=== PATIENT | male | born 1965 | race Caucasian/White ===

== ENCOUNTER 2020-01-24 02:02 | Outpatient (CLI) | payer BC, SELFPAY ==
[2020-01-24 17:59] LABS: SARS-CoV-2 RNA PCR Negative
== END 2020-01-24 02:03 | disposition home or self-care (01) ==
LOC: ANHCOVIDDT 02:02
PROVIDERS: PCP Family Medicine; Visit Provider Urology
DX: Z20.828 Contact with and (suspected) exposure to other viral communicable diseases (principal); Z01.812 Encounter for preprocedural laboratory examination
CPT/HCPCS: 87635; C9803; U0003

== ENCOUNTER 2020-01-27 01:59 | Day surgery (SDC) | payer BC, SELFPAY ==
[2020-01-26 12:15] VITALS: BMI 32.9
[2020-01-27] VITALS (8 sets, daily range): BP systolic 100–137; BP diastolic 65–93; PULSE 84–92; RESP 14–18; TEMP 36.3–37.3; O2SAT 93–100
--- NOTE | ~2020-01-27 | XR_ITS ---
EXAMINATION: XR retrograde pyelo w/stent LT INDICATION: Left ureteral stone TECHNIQUE: Eight intraoperative fluoroscopic images are submitted for review. Total fluoroscopic time is 18.3 seconds. The DAP is 0.03335 mGym2. COMPARISON: Radiograph from today FINDINGS: Fluoroscopic images demonstrate moderate left hydronephrosis. Final images demonstrate a le ft internal ureteral stent in expected position. Please refer to surgical note for full details. IMPRESSION: 1. Moderate left hydronephrosis with left internal ureteral stent in expected position. Please refer to surgical note for full details. Reviewed, dictated and finalized at location A. IMPRESSION: 1. Moderate left hydronephrosis with left internal ureteral stent in expected p osition. Please refer to surgical note for full details.
--- NOTE | ~2020-01-27 | XR_ITS ---
EXAMINATION: XR abdomen/kub 1V INDICATION: Left-sided abdominal pain TECHNIQUE: Supine views of the abdomen were obtained on 2 radiographs. COMPARISON: None FINDINGS: A 5 mm calcification projects in the left pelvis at the expected location of the left urete rovesicular junction. There is a 5 mm stone of the left kidney lower pole. No additional urinary trac t calculi are identified. The bowel gas pattern is normal. There is mild osteoarthritis of the hips. The visualized lung bases are clear. IMPRESSION: 1. Likely 5 mm stone at the left ureterovesicular junction. 2. Left nephrolithiasis. Reviewed, dictated and finalized at location A.
--- NOTE | 2020-01-27 08:22 | WPDANESEPPF ---
Anes - Initial Pre Proc Eval Procedure: Operation Date: 01/27/20 15:00 Proposed Procedures p Cystoscopy, Left Ureteroscopy, Left Retrograde Pyelogram, Left Stone Extraction, Possible Left Stent Placement - Arjun Robledo MD s Possible Holmium Laser Procedure - Arjun Robledo MD Date/Time: 01/27/20 08:22 Surgeon: Arjun Robledo MD Pre Op Diagnosis: Left Ureteral Stone Patient Data Age: 54 Gender: M Height: 1.8 m Weight: 107.05 kg Allergies Allergy/AdvReac Type Severity Reaction Status Date / Time niacin AdvReac Intermediate HEADACHES Verified 01/27/20 12:58 Home Medications Medication Instructions Recorded Confirmed Type albuterol sulfate 1 - 2 puff INHALATION DIRECTED 01/26/20 01/27/20 History PRN aspirin 81 mg PO DAILY 01/26/20 01/26/20 History atorvastatin 10 mg PO DAILY 01/26/20 01/27/20 History fluticasone propion-salmeterol 1 inh INHALATION DAILY 01/26/20 01/27/20 History [Advair Diskus] gabapentin 100 mg PO TID PRN 01/26/20 01/27/20 History lamotrigine 25 mg PO DAILY 01/26/20 01/27/20 History lamotrigine 150 mg PO DAILY 01/26/20 01/27/20 History lisinopril 10 mg PO DAILY 01/26/20 01/27/20 History tamsulosin [Flomax] 0.4 mg PO DAILY 01/26/20 01/27/20 History venlafaxine 150 mg PO DAILY 01/26/20 01/27/20 History Patient hx anesthesia problems: none Family hx anesthesia problems: none PMFSH Past Medical History Medical History (Updated 01/27/20 @ 08:22 by Woo Richards DO) Anxiety Asthma Depression Hyperlipidemia Hypertension SCHUYLER (obstructive sleep apnea) CPAP Pre-diabetes Surgical History Surgical History (Updated 01/27/20 @ 08:22 by Woo Richards DO) History of hernia repair History of tonsillectomy Social History Social History Smoking status: Never smoker Spiritual care concerns: No Anes - Eval Final PreProcedure Day of Procedure 01/27/20 08:22 Patient weight: obese Heart: regular rate and rhythm Lungs: clear to auscultation and normal air movement Airway: Mallampati scale class II Neurological: alert and oriented Last oral intake: >/= 8 hours ASA classification: III Emergent: no Anesthetic plan: proceed Anesthesia type and monitoring: general LMA and standard monitoring Informed Consent: The patient's anesthetic plan and its attendant risks and benefits were discussed with the patient/family/POA. Questions were solicited and answers provided to the satisfaction of the patient/family/POA.
--- NOTE | 2020-01-27 13:10 | ECG_ITS ---
Measurements Intervals [place] Rate: 82 P: 48 VT: 183 QRS: -5 QRSD: 79 T: 57 QT: 323 QTc: 379 Interpretive Statements SINUS RHYTHM EARLY PRECORDIAL R/S TRANSITION BORDERLINE ECG Electronically Signed On 01-27-2020 13:44:27 CDT by Romeo Cline D.O.
[2020-01-27] MEDS: LACTATED RINGERS 1,000 ML 30 ML IV CONT ×2 (14:00→16:29)
--- NOTE | 2020-01-27 14:02 | WPDHPUPDATE1 ---
History and Physical Update Update Date/Time: 01/27/20 14:02 History and Physical has been reviewed, including an updated exam of the patient. There are NO changes in the patient's condition. Risks, benefits, and alternatives have been discussed and questions answered. Patient agrees to proceed with procedure.
--- NOTE | 2020-01-27 14:05 | SUR.PREOP ---
To XY per w/c for KUB.
--- NOTE | 2020-01-27 15:09 | SUR.PREOP ---
Up to bathroom.
[2020-01-27] MEDS: ceFAZolin 2 GM/D5W 50 ML 2 GM/50 ML BAG IVPB (16:04)
[2020-01-27] MEDS: LIDOCAINE HCL 2% GEL UROJET 10 ML PKG MUCOUS MEM (16:22)
--- NOTE | 2020-01-27 16:22 | PM.PROC ---
Procedure Note - Detailed Date of procedure: 01/27/20 Pre-op diagnosis: Left Ureteral Stone Post-op diagnosis: same Procedure performed: Cystoscopy, left retrograde pyelogram, left ureteroscopy with stone extraction, left ureteral stent placement 4.8 Bulgarian contour Description of procedure: patient is taken to the operative suite and correctly identified. Once anesthesia was obtained was placed in dorsal lithotomy position prepped and draped usual sterile fashion. Twenty-two Bulgarian scope inserted into the bladder there are no tumors noted left ureteral orifice was cannulated with a guidewire. 8/10 dilator was used to dilate the ureter. A rigid ureteral scope was then inserted. The stone was visualized and grasped its entirety and sent for analysis. Pyelogram was then performed to confirm placement of the stent. 4.8 Bulgarian contour stent was then placed with the proximal end coiled in the renal pelvis distal in the bladder. Patient is taken recovery room after 2% viscous lidocaine inserted into urethra. He will follow up in a week's time for stent removal. Anesthesia: GLMA Surgeon: Arjun Robledo MD Drains: Yes Packing: No Pathology: yes Complications: No immediate complications Condition: stable Disposition: PACU
== END 2020-01-27 18:10 | disposition home or self-care (01) ==
PROVIDERS: PCP Family Medicine; Visit Provider Urology
PROC: (CPT 52352; principal; 2020-01-27 15:00)
PROC: (CPT 52332; 2020-01-27 15:00)
DX: N13.2 Hydronephrosis with renal and ureteral calculous obstruction (principal); I10 Essential (primary) hypertension; E78.5 Hyperlipidemia, unspecified; G47.33 Obstructive sleep apnea (adult) (pediatric); J45.909 Unspecified asthma, uncomplicated; F41.8 Other specified anxiety disorders; R73.03 Prediabetes; Z79.82 Long term (current) use of aspirin; E66.9 Obesity, unspecified; Z68.32 Body mass index [BMI] 32.0-32.9, adult
CPT/HCPCS: 52332; 52352; 74018; 74420; 82365; 88300; 93005; A9270; C1769; C2617; J0690; J1100; J2250; J2405; J2704; J3010; J7120; Q9966

== ENCOUNTER 2020-12-29 00:55 | Observation (INO) | payer BC, SELFPAY ==
[2020-12-29] VITALS (8 sets, daily range): BP systolic 107–147; BP diastolic 70–94; PULSE 77–86; RESP 12–20; TEMP 36.8–37.5; O2SAT 97–100; BMI 32.6
--- NOTE | ~2020-12-29 | XR_ITS ---
EXAMINATION: XR retrograde pyelo w/stent LT EXAM DATE: 12/29/2020 10:20 INDICATION: Left ureteral stent. TECHNIQUE: Fluoroscopy used during XR retrograde pyelo w/stent LT performed by Dr. Adam Forrester MD, urologist. The radiologist Bronson Roman M.D. dictating this report of the image(s) available wa s not present for the procedure. Total fluoroscopic time of 20 seconds. The DAP for this procedure was 483 radcm2. A total of 39 images sent to PACS from the exam. Cine run(s) available for review. FINDINGS: Prior to contrast administration, possible identification of 1.5 cm left ureteropelvic junc tion stone. Left ureter was cannulated and injected. There is mild to moderate left-sided hydroureter onephrosis. Final images demonstrate ureteral stent in position. Correlate with procedure note. IMPRESSION: Mild to moderate left hydroureteronephrosis. Stent in position. Reviewed, dictated and finalized at location A.
[2020-12-29] MEDS: SODIUM CHLORIDE 0.9% IV 1,000 ML 100 ML IV CONT (01:30)
--- NOTE | 2020-12-29 01:50 | ADMGEN ---
This patient, Jonnathan Hobson, was admitted to [facility]. Patient/family oriented to hospital policies and general routines including ID bracelet, bed and alarms, visiting hours, pain management, procedures, bathroom and other care routines, personal items, smoking policy, room service/diet, and visiting hours. Information on how to activate the Rapid Response Team has been discussed. Patient/Family are encouraged to report perceived risks to care and to ask questions if they do not understand what they are told or what they should do.
[2020-12-29] MEDS: MORPHINE SULFATE (*CRX) 4 MG/ML INJ IV PUSH ×2 (04:21→08:25)
--- NOTE | 2020-12-29 05:41 | PM.IMHP ---
H&P: HPI History of Present Illness Date/Time: 12/29/20 05:41 Chief Complaint: Flank pain Narrative: 55-year-old male with past medical history ADHD, hyperlipidemia, obstructive sleep apnea, asthma and kidney stones who presented to [facility] ER in [place] with flank pain. At the outside hospital CT demonstrated a 15 mm left kidney stone with ureteral obstruction and labs demonstrated acute kidney injury with creatinine of 1.8 up from prior value of 1.1. The patient is managed by Dr. Robledo from Urology and he was transferred here for further care. The patient reports that he he was feeling ill about a week week ago and was diagnosed with bronchitis and placed on albuterol inhaler and Augmentin. He initially thought that his left flank pain was due to his bronchitis. However over the last 3 or 4 days his flank pain has worsened and has been more in the lower left flank region. He had noticed his urine being darker over the last few days but denies any hematuria. He thought that his urine smells strong. He denies any dysuria or changes in urinary frequency. He reports the pain is achy with periods of stabbing. It occasionally will radiate around to his left anterior abdomen. He reports that at its worst the pain was the 12/10 in intensity in is currently down to a 5/10 intensity after IV morphine. He had his 1st kidney stone in January 2020 at which time he had a 5 mm stone with stent placement. He does drink a large amount of coffee and tea and occasionally has dark soda. Sounds as if he does not drink all that much of clear liquids. He denies any fevers or chills. He has continued to take his home Flomax which he is on due to history of BPH and urinary retention after catheter placement several times in the past. CT of the abdomen pelvis without contrast were performed at the outside facility and demonstrated 15 mm UVJ stone with moderate hydroureter and extensive perinephric stranding as well as hepatic steatosis. His white count was [address]. His UA was unremarkable except for 0-5 wbc's and 0-5 rbc's. Review of Systems Review of Systems: 12 systems were reviewed with pertinent positives and negatives per HPI. Except as documented in the HPI, all other systems were reviewed and are negative. [facility] Past Medical History Medical History (Updated 12/29/20 @ 07:19 by Lucía Givens DO) ADHD Anxiety Asthma BPH (benign prostatic hyperplasia) Depression Hyperlipidemia Hypertension Kidney stones SCHUYLER (obstructive sleep apnea) CPAP Pre-diabetes Psoriasis Surgical History Surgical History (Updated 12/29/20 @ 05:49 by Lucía Givens DO) History of hernia repair (~2017) History of tonsillectomy S/P cystoscopy with ureteral stent placement (01/2020) Family History Family History Mother Acute myocardial infarction Father Acute myocardial infarction Grandparent Alzheimer's dementia Social History Social History (Updated 12/29/20 @ 07:18 by Lucía Givens DO) Social History: He has been since 2007. 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 He is a lifelong nonsmoker. He drinks 2-3 alcoholic beverages a week. He denies illicit substance use. He does not have any children but has 2 small dogs at home. Smoking status: Never smoker Second hand tobacco smoke exposure: No Alcohol intake: current Drinks per week: 2 Substance use: never Substance use type: does not use Spiritual care concerns: No Meds Home Medications and Allergies Home Medications Medication Instructions Recorded Confirmed Type albuterol sulfate 1 - 2 puff INHALATION DIRECTED 01/26/20 12/29/20 History PRN aspirin 81 mg PO HS 01/26/20 12/29/20 History atorvastatin 10 mg PO HS 01/26/20 12/29/20 History fluticasone propion-salmeterol 1 inh INHALATION DAILY 01/26/20 12/29/20 History [Advair Disk] lamotrigine 150
[2020-12-29 06:46] LABS: Hematocrit 40.2 % (42.0-52.0); Hemoglobin 13.3 g/dL (14.0-18.0); Mean Corpuscular HGB Conc 33.1 g/dl (32-36); Mean Corpuscular Volume 99.8 fl (80-100); Platelet Count Result 197 k/mm3 (150-375); Red Blood Count 4.03 M/mm3 (4.6-6.20); Red Cell Distribution Width 13.1 % (11.5-14.5); White Blood Count 11.6 K/mm3 (4.5-10.0)
[2020-12-29 07:12] LABS: Anion Gap 7 mmol/L (8-16); Blood Urea Nitrogen 25 mg/dL (9-20); Calcium 8.9 mg/dL (8.4-10.2); Carbon Dioxide 28 mmol/L (22-30); Chloride 102 mmol/L (98-107); Estimated CRCL calculation 73 ml/min; Estimated Glomerular Filt Rate 58; Glucose 123 mg/dL (65-110); Potassium 4.3 mmol/L (3.4-5.0); Sodium 137 mmol/L (137-145)
--- NOTE | 2020-12-29 09:00 | WPDANESEPPF ---
Anes - Initial Pre Proc Eval Procedure: Operation Date: 12/29/20 10:00 Proposed Procedures p Cystoscopy,Left Stent Placement - Adam Forrester MD Date/Time: 12/29/20 09:00 Surgeon: Lucía Givens DO Pre Op Diagnosis: Kidney stones Patient Data Age: 55 Gender: M Height: 1.8 m Weight: 106.2 kg Last Vital Signs Temp 36.9 C 12/29/20 00:45 Pulse 84 12/29/20 00:45 Resp 16 12/29/20 00:45 BP 147/93 H 12/29/20 00:45 Pulse Ox 99 12/29/20 00:45 Allergies Allergy/AdvReac Type Severity Reaction Status Date / Time niacin AdvReac Intermediate HEADACHES Verified 12/29/20 02:00 Home Medications Medication Instructions Recorded Confirmed Type albuterol sulfate 1 - 2 puff INHALATION DIRECTED 01/26/20 12/29/20 History PRN aspirin 81 mg PO HS 01/26/20 12/29/20 History atorvastatin 10 mg PO HS 01/26/20 12/29/20 History fluticasone propion-salmeterol 1 inh INHALATION DAILY 01/26/20 12/29/20 History [Advair Diskus] lamotrigine 150 mg PO DAILY 01/26/20 12/29/20 History lisinopril 10 mg PO HS 01/26/20 12/29/20 History tamsulosin [Flomax] 0.4 mg PO HS 01/26/20 12/29/20 History venlafaxine 150 mg PO HS 01/26/20 12/29/20 History amoxicillin-pot clavulanate 1 tablet PO BID 12/29/20 12/29/20 History atomoxetine [Strattera] 60 mg PO DAILY 12/29/20 12/29/20 History montelukast [Singulair] 10 mg PO HS 12/29/20 12/29/20 History prednisone 10 mg PO DAILY 12/29/20 12/29/20 History Laboratory Tests 12/29/20 12/29/20 06:31 06:31 WBC 11.6 K/mm3 H K/mm3 (4.5-10.0) RBC 4.03 M/mm3 L M/mm3 (4.6-6.20) Hgb 13.3 g/dL L g/dL (14.0-18.0) Hct 40.2 % L % (42.0-52.0) MCV 99.8 fl fl (80-100) MCH 33.0 pg pg (26-34) MCHC 33.1 g/dl g/dl (32-36) RDW 13.1 % % (11.5-14.5) Plt Count 197 k/mm3 k/mm3 (150-375) MPV 10.0 fl fl (7.4-10.4) Sodium 137 mmol/L mmol/L (137-145) Potassium 4.3 mmol/L mmol/L (3.4-5.0) Chloride 102 mmol/L mmol/L (98-107) Carbon Dioxide 28 mmol/L mmol/L (22-30) Anion Gap 7 mmol/L L mmol/L (8-16) BUN 25 mg/dL H mg/dL (9-20) Creatinine 1.30 mg/dL mg/dL (0.7-1.3) Estim Creat Clear Calc 73 ml/min ml/min Estimated GFR 58 L (59 - ) Glucose 123 mg/dL H mg/dL (65-110) Calcium 8.9 mg/dL mg/dL (8.4-10.2) Patient hx anesthesia problems: none Family hx anesthesia problems: none [facility] Past Medical History Medical History (Updated 12/29/20 @ 07:19 by Lucía Givens DO) ADHD Anxiety Asthma BPH (benign prostatic hyperplasia) Depression Hyperlipidemia Hypertension Kidney stones SCHUYLER (obstructive sleep apnea) CPAP Pre-diabetes Psoriasis Surgical History Surgical History (Updated 12/29/20 @ 05:49 by Lucía Givens DO) History of hernia repair (~2017) History of tonsillectomy S/P cystoscopy with ureteral stent placement (01/2020) Family History Family History Mother Acute myocardial infarction Father Acute myocardial infarction Grandparent Alzheimer's dementia Social History Social History (Updated 12/29/20 @ 07:18 by Lucía Givens DO) Social History: He has been since 2007. 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 He is a lifelong nonsmoker. He drinks 2-3 alcoholic beverages a week. He denies illicit substance use. He does not have any children but has 2 small dogs at home. Smoking status: Never smoker Second hand tobacco smoke exposure: No Alcohol intake: current Drinks per week: 2 Substance use: never Substance use type: does not use Spiritual care concerns: No Anes - Eval Final PreProcedure Day of Procedure 12/29/20 09:00 Patient weight: obese Heart: regular rate and rhythm Lungs: clear to auscultation and normal air movement Airway: Mallampati scale class II Neurolo
--- NOTE | 2020-12-29 09:03 | WPDURCON ---
Assessment and Plan Assessment and plan (1) Obstruction of left ureteropelvic junction due to stone: Code(s): N20.1 - Calculus of ureter Status: Acute Assessment and Plan: Keep NPO Obtain Consent: Cystoscopy, left ureteroscopy with possible stone extraction, left stent placement, holmium laser, left retrograde pyelogram. Plan to go to the OR today with Dr. Forrester. The patient will likely only have a stent today and then f/u in a week or two for a left ESWL. (2) Acute kidney injury: Code(s): N17.9 - Acute kidney failure, unspecified Status: Acute Assessment and Plan: Improved from 1.8 initially at [place]. Will watch creatinine, I suspect it will continue to decline to baseline once stent is placed. Urology Consult Note HPI Date Seen: 12/29/20 Requesting Physician: Lucía Givens DO Primary Care Provider: Cornelius Driver MD Consult Narrative Narrative: Jonnathan Hobson is a 55 year old male who presented to the ER in [place] last night at [facility] for acute onset of left sided pain around 1900. He denies nausea or vomiting, dysuria or hematuria. His UA wasn't suspicious of a UTI, urine culture is pending at this time. WBC is 11.6 and creatinine is 1.30. CT scan done in [place], shows a 15mm UPJ stone in the left ureter. He was transferred here for definitive stone care. He is a patient if Dr. Robledo' who has had previous stones and procedures for his stones. Review of Systems Cardiovascular: Cardiovascular: Denies chest pain Respiratory: Respiratory: Reports no additional respiratory complaints Gastrointestinal: Gastrointestinal: Reports abdominal pain, Denies nausea and Denies vomiting Genitourinary: Genitourinary: Denies hematuria, Denies dysuria, Reports flank pain, Denies urinary frequency, Denies urinary hesitancy, Denies urinary incontinence and Denies urinary urgency [facility] Past Medical History Medical History ADHD Anxiety Asthma BPH (benign prostatic hyperplasia) Depression Hyperlipidemia Hypertension Kidney stones SCHUYLER (obstructive sleep apnea) CPAP Pre-diabetes Psoriasis Surgical History Surgical History History of hernia repair (~2017) History of tonsillectomy S/P cystoscopy with ureteral stent placement (01/2020) Family History Family History Mother Acute myocardial infarction Father Acute myocardial infarction Grandparent Alzheimer's dementia Social History Social History Social History: He has been since 2007. 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 He is a lifelong nonsmoker. He drinks 2-3 alcoholic beverages a week. He denies illicit substance use. He does not have any children but has 2 small dogs at home. Smoking status: Never smoker Second hand tobacco smoke exposure: No Alcohol intake: current Drinks per week: 2 Substance use: never Substance use type: does not use Spiritual care concerns: No Meds Home Medications and Allergies Home Medications Medication Instructions Recorded Confirmed Type albuterol sulfate 1 - 2 puff INHALATION DIRECTED 01/26/20 12/29/20 History PRN aspirin 81 mg PO HS 01/26/20 12/29/20 History atorvastatin 10 mg PO HS 01/26/20 12/29/20 History fluticasone propion-salmeterol 1 inh INHALATION DAILY 01/26/20 12/29/20 History [Advair Diskus] lamotrigine 150 mg PO DAILY 01/26/20 12/29/20 History lisinopril 10 mg PO HS 01/26/20 12/29/20 History tamsulosin [Flomax] 0.4 mg PO HS 01/26/20 12/29/20 History venlafaxine 150 mg PO HS 01/26/20 12/29/20 History amoxicillin-pot clavulanate 1 tablet PO BID 12/29/20 12/29/20 History atomoxetine [Strattera] 60 mg PO DAILY 12/29/20 12/29/20 History montelukast [Si
[2020-12-29] MEDS: LACTATED RINGERS 1,000 ML 30 ML IV CONT (09:08)
[2020-12-29] MEDS: ceFAZolin 2 GM/D5W 50 ML 2 GM/50 ML BAG IVPB (09:53)
--- NOTE | 2020-12-29 09:55 | WPDHPUPDATE1 ---
History and Physical Update Update Date/Time: 12/29/20 09:55 Agree with Selwyn Mijares NP assessment. Will plan cystoscopy, left ureteral stent placement today and ESWL in the future. History and Physical has been reviewed, including an updated exam of the patient. There are NO changes in the patient's condition. Risks, benefits, and alternatives have been discussed and questions answered. Patient agrees to proceed with procedure.
[2020-12-29] MEDS: LIDOCAINE HCL 2% GEL UROJET 10 ML PKG MUCOUS MEM (10:06)
--- NOTE | 2020-12-29 10:17 | P.OP_ITS ---
Procedure Note - Detailed Date of Procedure 12/29/20 Pre-op Diagnosis Left ureteral stone Post-op Diagnosis same Procedure Performed Cystoscopy, left ureteral retrograde pyelogram, left stent placement Surgeon Adam Forrester MD Anesthesia MAC Description of Procedure The patient was brought to the operative suite where he was prepped and draped in a routine sterile fashion while in the dorsal lithotomy position. A 19 F rigid cystoscope was placed in her bladder and the bladder was circumferentially inspected. There were no urethral strictures. The prostatic urethral estimated length was 1.5cm. There was mild obstruction of the prostatic urethra with no median lobe. The bladder mucosa was without hyperemia. There was no intravesical foreign body or neoplasm. There was a single orthotopic ureteral orifice bilaterally. I did a quick left retrograde pyelogram with an 8F bulb- tip catheter to outline the left collecting system. I advanced .035 glidewire into the left renal pelvis under fluoroscopy. A 4.8F variable length ureteral stent was positioned with the proximal coil in the renal pelvis and the distal coil in the bladder. Scopes and wires were removed after emptying the patient's bladder. Urine Output 175 Drains Yes Packing No Pathology none sent Complications No immediate complications Condition stable Disposition PACU
--- NOTE | 2020-12-29 13:45 | PM.IMPN ---
Progress Note: A&P Assessment and Plan (1) Obstruction of left ureteropelvic junction due to stone: Code(s): N20.1 - Calculus of ureter Status: Acute Assessment and Plan: status post stent placement on the left with Urology earlier today benign physical exam, including no CVA tenderness; symptoms of flank pain and hematuria, dysuria subsided, per patient Based on notes and discussion with patient, appears to have plan for shockwave lithotripsy on Sunday In the meantime will continue IV fluids, pain control with morphine, Flomax, Augmentin. Resume anticoagulation this evening defer to urology, regarding timeline of discharge (2) Bronchitis: Code(s): J40 - Bronchitis, not specified as acute or chronic Status: Acute Assessment and Plan: Will continue the patient's home albuterol inhaler, Augmentin, Advair, p.o. prednisone and singular Time Spent With Patient Time with patient: less than 15 minutes Subjective Date/time seen: 12/29/20 13:45 no acute medical complaints, patient feeling good, no lower abdominal pain or dysuria at this point Review of Systems Review of Systems: All systems reviewed & are unremarkable except as noted in HPI and below Exam Const: General: no acute distress Neck: Neck: no JVD Resp: Effort & Inspection: normal respiratory effort Auscultation: clear to auscultation bilaterally Cardio: Rate: regular rate Rhythm: regular rhythm GI: GI Palp: Yes Soft to palpation and No Tenderness to palpation present (GI) Other: no flank tenderness Objective Data Vital Signs Vital Signs: Vital Signs - 24 hr 12/29/20 00:45 12/29/20 08:00 12/29/20 08:30 Temperature 98.4 F 98.2 F 99.5 F Pulse Rate 84 86 84 Respiratory Rate 16 18 16 Blood Pressure 147/93 H 129/80 137/80 Pulse Oximetry 99 98 100 12/29/20 10:22 12/29/20 10:35 12/29/20 10:50 Temperature 99.4 F Pulse Rate 81 77 81 Respiratory Rate 12 20 18 Blood Pressure 107/70 114/80 132/88 Pulse Oximetry 97 97 98 12/29/20 11:05 12/29/20 11:25 Temperature Pulse Rate 83 86 Respiratory Rate 18 16 Blood Pressure 136/89 147/94 H Pulse Oximetry 97 97 Intake/Output Intake/Output: Intake & Output 12/26/20 12/27/20 12/28/20 12/29/20 23:59 23:59 23:59 23:59 Intake Total 100 Output Total 600 Balance -500 Meds/Results Medications: Active Medications Generic Name Dose Route Start Last Admin Trade Name Freq PRN Reason Stop Dose Admin Amoxicillin/Clavulanate Potassium 1 tablet 12/29/20 09:00 Amoxicillin/Clavulanate K 875-125 Mg Tab PO Q12HR ANGELITA Fentanyl Citrate 25 mcg 12/29/20 09:00 Fentanyl Citrate Inj (*Crx) 100 Mcg/2 Ml Vial IV PUSH Q2M PRN Pain Sodium Chloride 1,000 mls @ 100 mls/hr 12/29/20 01:25 12/29/20 01:30 Normal Saline Iv IV CONT 100 mls/hr .Q10H ANGELITA Administration Lactated Ringer's 1,000 mls @ 30 mls/hr 12/29/20 09:00 12/29/20 11:09 Lr - Lactated Ringers Iv IV CONT Infused .Q24H ANGELITA Infusion Lactated Ringer's 1,000 mls @ 30 mls/hr 12/29/20 09:00 Lr - Lactated Ringers Iv IV CONT .Q24H [facility] Lamotrigine 100 mg/ 150 mg 12/29/20 09:00 Lamotrigine 50 mg PO DAILY [facility] Montelukast Sodium 10 mg 12/29/20 21:00 Montelukast Sodium 10 Mg Tablet PO HS [facility] Morphine Sulfate 4 mg 12/29/20 01:28 12/29/20 08:25 Morphine Sulfate (*Crx) 4 Mg/Ml Inj IV PUSH 4 mg Q4H PRN Administration Pain Rated 7-10 Ondansetron HCl 4 mg 12/29/20 09:00 Ondansetron Inj 4 Mg/2 Ml Vial IV PUSH ONCE PRN Nausea Prednisone 10 mg 12/29/20 09:00 Prednisone 10 Mg Tablet PO DAILY [facility] Fluticasone/Salmeterol 2 puff 12/29/20 08:00 Fluticasone/Salmeterol 115-21 Mcg Inhaler 1 Puff INHALATION DAILY@0800 [facility] Tamsulosin HCl 0.4 mg 12/29/20 21:00 Tamsulosin Hcl 0.4 Mg Capsule PO HS [facility] Venlafaxine HCl 150 mg 12/29/20 21:00 Venlafaxine Hcl Xr 75 Mg Cap.Er.24
[2020-12-29] MEDS: AMOXICILLIN/CLAVULANATE K 875-125 MG TAB 1 TABLET PO (14:00)
[2020-12-29] MEDS: predniSONE 10 MG TABLET PO (14:00)
[2020-12-29] MEDS: lamoTRIgine 100 MG, lamoTRIgine 50 MG 150 MG PO (14:00)
--- NOTE | 2020-12-29 16:03 | PM.DS ---
DS: Admitting Diagnosis Discharge Date 12-29-20 Admitting Diagnosis Flank pain, left side DS: Discharge Diagnosis Discharge Diagnosis (1) Obstruction of left ureteropelvic junction due to stone: Code(s): N20.1 - Calculus of ureter Status: Acute DS: Summary Hospital Course Reason for hospitalization: Left-sided kidney stone Hospital Course: Patient is a 55-year-old male with past medical history ADHD, hyperlipidemia obstructive sleep apnea and asthma and prior kidney stone treated with stenting last January, presenting with 3-4 days of worsening left flank pain. He initially went to [facility] emergency room in [place], and a CT was obtained there, which showed a 15 mm left kidney stone causing a ureteral obstruction, and creatinine of 1.8. Was sent here given that his prior care is here at [facility]. CT was not repeated, because information present from outside hospital imaging. Here there is no evidence in lab work at this time of kidney injury. Also no signs of sepsis. But given the size of the stone, 15 mm, underwent stenting of left ureteral with urology service. Well-tolerated procedure, patient is not in any pain, and reports feeling much better. He will follow with Urology as an outpatient to undergo shockwave lithotripsy. In the meantime, patient advised to strain urine in case tone passes, and to continue Flomax. Of note, patient was being treated as an outpatient for bronchitis, with b.i.d. Augmentin and prednisone. Today was the last day of the prednisone taper, which was completed here in the hospital prior to discharge. He still has a few days left of the Augmentin, which she will continue at home, it was continued while he was admitted here. Status at Discharge Functional status at discharge: independent ambulation Time Spent with Patient Time attestation: Total time spent providing and/or coordinating discharge services: Time spent: Less than 30 minutes DS: Data Data Completed and Pending Labs on day of discharge: Labs from last 24 hours 12/29/20 12/29/20 06:31 06:31 WBC 11.6 H RBC 4.03 L Hgb 13.3 L Hct 40.2 L MCV 99.8 MCH 33.0 MCHC 33.1 RDW 13.1 Plt Count 197 MPV 10.0 Sodium 137 Potassium 4.3 Chloride 102 Carbon Dioxide 28 Anion Gap 7 L BUN 25 H Creatinine 1.30 Estim Creat Clear Calc 73 Estimated GFR 58 L Glucose 123 H Calcium 8.9 Discharge Plan Discharge Attending physician on discharge: Joselo Henriquez Consulting providers: Lorenzo Dumont Discharging Clinician: Joselo Henriquez Patient Disposition: Home, Self-Care Activity: may shower, no straining, no driving and as tolerated Diet: as tolerated, renal and low fat Patient Instructions: Antibiotic Form, Aspirin (By mouth) Stand Alone Forms: General Discharge Information Follow-up/Referrals: Lorenzo Dumont MD [Physician] - Call for Appointment Cornelius Driver MD [Primary Care Provider] - Call for Appointment Discharge Medications: Continued lamotrigine 150 mg tablet 150 mg PO DAILY RF: 0 venlafaxine 150 mg capsule,extended release 24hr 150 mg PO HS RF: 0 aspirin 81 mg Tablet,Delayed Release (Dr/Ec) 81 mg PO HS RF: 0 tamsulosin [Flomax] 0.4 mg Capsule 0.4 mg PO HS RF: 0 lisinopril 10 mg tablet 10 mg PO HS RF: 0 atorvastatin 10 mg tablet 10 mg PO HS RF: 0 fluticasone propion-salmeterol [Advair Diskus] 250-50 mcg/dose blister with device 1 inh INHALATION DAILY RF: 0 albuterol sulfate 90 mcg/actuation HFA aerosol inhaler 1 - 2 puff INHALATION DIRECTED PRN (Reason: Shortness Of Breath) RF: 0 amoxicillin-pot clavulanate 875-125 mg tablet 1 tablet PO BID RF: 0 atomoxetine [Strattera] 60 mg capsule 60 mg PO DAILY RF: 0 montelukast [Singulair] 10 mg Tablet 10 mg PO HS RF: 0 Discontinued prednisone 10 mg Tablet 10 mg PO DAILY RF: 0 Date of admission:
== END 2020-12-29 16:50 | disposition home or self-care (01) ==
PROVIDERS: Urology; Admitting Provider Internal Medicine; PCP Family Medicine; Referring Provider Urology; Visit Provider Internal Medicine
PROC: (CPT 52352; principal; 2020-12-29 10:00)
DX: N20.1 Calculus of ureter (principal); N13.30 Unspecified hydronephrosis; J40 Bronchitis, not specified as acute or chronic; I10 Essential (primary) hypertension; E78.5 Hyperlipidemia, unspecified; G47.33 Obstructive sleep apnea (adult) (pediatric)
CPT/HCPCS: 52332; 36415; 74420; 80048; 85027; 87086; 96361; 96374; 96375; 96376; A9270; C1758; C1769; C2617; G0378; J0690; J2250; J2270; J2704; J3010; J7030; J7120; J7512; Q9966

== ENCOUNTER 2020-12-30 13:45 | Outpatient (CLI) | payer BC, SELFPAY ==
[2020-12-30 14:20] LABS: INR 0.9; Prothrombin Time 12.2 Seconds (11.1-14.7)
[2020-12-30 14:21] LABS: Partial Thromboplastin Time 24.9 SECONDS (22.3-36.8)
== END 2020-12-30 13:46 | disposition home or self-care (01) ==
LOC: ANHSURGERY 13:49
PROVIDERS: PCP Family Medicine; Visit Provider Urology
DX: Z01.812 Encounter for preprocedural laboratory examination (principal); N20.1 Calculus of ureter
CPT/HCPCS: 36415; 85610; 85730

== ENCOUNTER 2020-12-31 01:04 | Day surgery (SDC) | payer BC, SELFPAY ==
[2020-12-30 10:27] VITALS: BMI 32.1
--- NOTE | 2020-12-30 13:45 | PM.HPGS ---
History of Present Illness History of Present Illness Consent: Risks, benefits, and alternatives have been discussed and questions answered. Patient agrees to proceed with procedure. Chief complaint: left renal stone Narrative: Jonnathan Hobson is a 55 year old male who was transferred from [facility] 2 days ago with acute left renal colic. Imaging imaging demonstrated an obstructing 1 cm left proximal ureteral stone. Ureteral stent was placed and was discharged later that day. He now presents for definitive intervention with left ESWL. suite where the risk including, but not limited to left renal hematoma, failure to completely fracture the stone, postoperative pain and hematuria. Review of Systems Cardiovascular: Cardiovascular: Denies chest pain, Denies lightheadedness, Denies palpitations and Denies dyspnea Respiratory: Respiratory: Denies dyspnea Gastrointestinal: Gastrointestinal: Denies diarrhea, Denies nausea and Denies vomiting Genitourinary: Genitourinary: Denies hematuria and Denies dysuria Endocrine: Endocrine: Denies palpitations PMFSH Past Medical History Medical History ADHD Anxiety Asthma BPH (benign prostatic hyperplasia) Depression Hyperlipidemia Hypertension Kidney stones SCHUYLER (obstructive sleep apnea) CPAP Pre-diabetes Psoriasis Surgical History Surgical History History of hernia repair (~2016) History of tonsillectomy S/P cystoscopy with ureteral stent placement (01/2020) Family History Family History Mother Acute myocardial infarction Father Acute myocardial infarction Grandparent Alzheimer's dementia Social History Social History Social History: He has been since 2007. 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 He is a lifelong nonsmoker. He drinks 2-3 alcoholic beverages a week. He denies illicit substance use. He does not have any children but has 2 small dogs at home. Smoking status: Never smoker Second hand tobacco smoke exposure: No Alcohol intake: current Drinks per week: 2 Substance use: never Substance use type: does not use Spiritual care concerns: No Meds Home Medications and Allergies Home Medications Medication Instructions Recorded Confirmed Type albuterol sulfate 1 - 2 puff INHALATION DIRECTED 01/26/20 12/30/20 History PRN aspirin 81 mg PO HS 01/26/20 12/30/20 History atorvastatin 10 mg PO HS 01/26/20 12/30/20 History fluticasone propion-salmeterol 1 inh INHALATION BID 01/26/20 12/30/20 History [Advair Diskus] lamotrigine 150 mg PO DAILY 01/26/20 12/30/20 History lisinopril 10 mg PO HS 01/26/20 12/30/20 History tamsulosin [Flomax] 0.4 mg PO HS 01/26/20 12/30/20 History venlafaxine 150 mg PO HS 01/26/20 12/30/20 History amoxicillin-pot clavulanate 1 tablet PO BID 12/29/20 12/30/20 History atomoxetine [Strattera] 60 mg PO DAILY 12/29/20 12/30/20 History montelukast [Singulair] 10 mg PO HS 12/29/20 12/30/20 History Allergies Allergy/AdvReac Type Severity Reaction Status Date / Time niacin AdvReac Intermediate HEADACHES Verified 12/30/20 10:24 Exam Const: General: no acute distress Resp: Effort & Inspection: normal respiratory effort GI: Inspection: non-distended GI Palp: No abdominal tenderness and No Guarding due to palpation present (GI) Auscultation: normal bowel sounds Assessment and Plan Assessment and plan (1) Obstruction of left ureteropelvic junction due to stone: Code(s): N20.1 - Calculus of ureter Status: Acute Assessment and Plan: Left ESWL
[2020-12-31] VITALS (9 sets, daily range): BP systolic 114–144; BP diastolic 75–96; PULSE 72–83; RESP 13–20; TEMP 36.7–37.2; O2SAT 96–100
--- NOTE | ~2020-12-31 | XR_ITS ---
EXAMINATION: XR abdomen/kub 1V EXAM DATE: 12/31/2020 10:28 INDICATION: KUB for lithotripsy. TECHNIQUE: Frontal projection(s) of the abdomen for interpretation. Comparison is made to prior exami nation from 01/27/2020. FINDINGS: There is a left-sided double-J ureteral stent in position. There is approximately 1.5 cm c alcific density located just below the proximal loop, nephrolithiasis. No other suspicious calcificat ions. There is no organomegaly. IMPRESSION: Large left nephrolithiasis. Ureteral stent in position. Reviewed, dictated and finalized at location A.
--- NOTE | 2020-12-31 07:09 | WPDHPUPDATE1 ---
History and Physical Update Update Date/Time: 12/31/20 07:09 History and Physical has been reviewed, including an updated exam of the patient. There are NO changes in the patient's condition. Risks, benefits, and alternatives have been discussed and questions answered. Patient agrees to proceed with procedure.
--- NOTE | 2020-12-31 07:12 | WPDANESEPPF ---
Anes - Initial Pre Proc Eval Procedure: Operation Date: 12/31/20 12:00 Proposed Procedures p Left Extracorporeal Shock Wave Lithotripsy - Adam Forrester MD Date/Time: 12/31/20 07:12 Surgeon: Adam Forrester MD Pre Op Diagnosis: left renal stone Patient Data Age: 55 Gender: M Height: 1.8 m Weight: 104.5 kg Allergies Allergy/AdvReac Type Severity Reaction Status Date / Time niacin AdvReac Intermediate HEADACHES Verified 12/30/20 10:24 Home Medications Medication Instructions Recorded Confirmed Type albuterol sulfate 1 - 2 puff INHALATION DIRECTED 01/26/20 12/30/20 History PRN aspirin 81 mg PO HS 01/26/20 12/30/20 History atorvastatin 10 mg PO HS 01/26/20 12/30/20 History fluticasone propion-salmeterol 1 inh INHALATION BID 01/26/20 12/30/20 History [Advair Diskus] lamotrigine 150 mg PO DAILY 01/26/20 12/30/20 History lisinopril 10 mg PO HS 01/26/20 12/30/20 History tamsulosin [Flomax] 0.4 mg PO HS 01/26/20 12/30/20 History venlafaxine 150 mg PO HS 01/26/20 12/30/20 History amoxicillin-pot clavulanate 1 tablet PO BID 12/29/20 12/30/20 History atomoxetine [Strattera] 60 mg PO DAILY 12/29/20 12/30/20 History montelukast [Singulair] 10 mg PO HS 12/29/20 12/30/20 History Patient hx anesthesia problems: none Family hx anesthesia problems: none [facility] Past Medical History Medical History ADHD Anxiety Asthma BPH (benign prostatic hyperplasia) Depression Hyperlipidemia Hypertension Kidney stones SCHUYLER (obstructive sleep apnea) CPAP Pre-diabetes Psoriasis Surgical History Surgical History History of hernia repair (~2016) History of tonsillectomy S/P cystoscopy with ureteral stent placement (01/2020) Family History Family History Mother Acute myocardial infarction Father Acute myocardial infarction Grandparent Alzheimer's dementia Social History Social History Social History: He has been since 2007. 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 He is a lifelong nonsmoker. He drinks 2-3 alcoholic beverages a week. He denies illicit substance use. He does not have any children but has 2 small dogs at home. Smoking status: Never smoker Second hand tobacco smoke exposure: No Alcohol intake: current Drinks per week: 2 Substance use: never Substance use type: does not use Living arrangements: with family Spiritual care concerns: No Anes - Eval Final PreProcedure Day of Procedure 12/31/20 07:12 Patient weight: obese Heart: regular rate and rhythm Lungs: clear to auscultation and normal air movement Airway: Mallampati scale class 1 Neurological: alert and oriented Last oral intake: >/= 8 hours ASA classification: III Emergent: no Anesthetic plan: proceed Anesthesia type and monitoring: general LMA and standard monitoring Informed Consent: The patient's anesthetic plan and its attendant risks and benefits were discussed with the patient/family/POA. Questions were solicited and answers provided to the satisfaction of the patient/family/POA.
[2020-12-31] MEDS: LACTATED RINGERS 1,000 ML 30 ML IV CONT (11:08)
[2020-12-31] MEDS: FAMOTIDINE 20 MG/2 ML VIAL IV PUSH (11:17)
[2020-12-31] MEDS: ONDANSETRON INJ 4 MG/2 ML VIAL IV PUSH (11:17)
[2020-12-31] MEDS: ceFAZolin 2 GM/D5W 50 ML 2 GM/50 ML BAG IVPB (12:41)
--- NOTE | 2020-12-31 12:52 | W.PM.PROC2 ---
Procedure Note - Detailed Date of Procedure 12/31/20 Pre-op Diagnosis Left renal stone Post-op Diagnosis same Procedure Performed Left ESWL Surgeon Adam Forrester MD Anesthesia general Description of Procedure The patient was brought to the operative suite where he was placed in the supine position on the Dornier lithotripsy table. The focal point of the lithotripter was placed at a 15mm left renal calculus. A total of 2500 shocks were delivered at a power setting of 4. There appeared to be good fragmentation of the stone. The patient tolerated the procedure well and was taken to the recovery room in good condition. Drains No Packing No Pathology none sent Complications No immediate complications Condition stable Disposition PACU
== END 2020-12-31 15:25 | disposition home or self-care (01) ==
PROVIDERS: PCP Family Medicine; Visit Provider Urology
PROC: (CPT 50590; principal; 2020-12-31 12:00)
DX: N20.0 Calculus of kidney (principal); I10 Essential (primary) hypertension; E78.5 Hyperlipidemia, unspecified; R73.03 Prediabetes; F41.8 Other specified anxiety disorders; G47.33 Obstructive sleep apnea (adult) (pediatric); N40.0 Benign prostatic hyperplasia without lower urinary tract symptoms; J45.909 Unspecified asthma, uncomplicated; F90.9 Attention-deficit hyperactivity disorder, unspecified type; L40.9 Psoriasis, unspecified; Z79.82 Long term (current) use of aspirin; Z79.51 Long term (current) use of inhaled steroids; E66.9 Obesity, unspecified; Z68.31 Body mass index [BMI] 31.0-31.9, adult
CPT/HCPCS: 50590; 74018; A9270; J0690; J1100; J2405; J2704; J3010; J7120

== ENCOUNTER 2021-01-15 13:48 | Outpatient (CLI) | payer BC, SELFPAY ==
--- NOTE | ~2021-01-15 | XR_ITS ---
EXAMINATION: XR abdomen/kub 1V DATE: 01/15/2021 14:08 INDICATION: Left ureteral stone and kidney stone. TECHNIQUE: A supine view of the abdomen on 2 radiographs was obtained. COMPARISON: 12/31/2020 FINDINGS: Unchanged left internal ureteral stent with loops formed over the region of the left renal pelvis and the bladder. Interval fragmentation of a prior larger stone at the lower pole of the left kidney the largest stone fragment or cluster of stone fragments measures 10 mm in maximal diameter. There is a 2-3 mm stone fragment along side the catheter in the region of the right ureteral pelvic junction. No other stone/stone fragments seen along the more distal ureter. Couple unchanged phleboliths in the l eft hemipelvis. Normal bowel gas pattern. Lung bases are clear. Heart size is normal. IMPRESSION: 1. Changes of interval lithotripsy with fragmentation of a prior larger stone at the lower pole of th e left kidney with 2-3 mm stone fragment at the ureteropelvic junction along side a left internal ure teral stent which is in expected position. Reviewed, dictated and finalized at location A. IMPRESSION: 1. Changes of interval lithotripsy with fragmentation of a prior larger stone a t the lower pole of the left kidney with 2-3 mm stone fragment at the ureterope lvic junction along side a left internal ureteral stent which is in expected po sition.
== END 2021-01-15 13:49 | disposition home or self-care (01) ==
LOC: ANHIMG 13:52
PROVIDERS: PCP Family Medicine; Visit Provider Nurse Practitioner Family
DX: N20.0 Calculus of kidney (principal)
CPT/HCPCS: 74018

== ENCOUNTER → 2021-03-21 10:23 | Outpatient (CLI) | payer OTHER, SELFPAY ==
--- NOTE | ~2021-03-21 | XR_ITS ---
EXAMINATION: XR abdomen/kub 1V DATE: 03/21/2021 10:57 INDICATION: Calculus of kidney. TECHNIQUE: A supine view of the abdomen on 2 radiographs was obtained. COMPARISON: Abdomen radiographs 01/15/2021 FINDINGS: There are no dilated loops of bowel. There is a phlebolith in left pelvis. The kidneys are obscured by bowel. There is a 2 mm stone in left kidney. IMPRESSION: 1. 2 mm stone in left kidney. Reviewed, dictated and finalized at location A. 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
== END ==
PROVIDERS: PCP Family Medicine; Visit Provider Urology
DX: N20.0 Calculus of kidney (principal)
CPT/HCPCS: 74018

== ENCOUNTER 2022-03-20 14:54 | Outpatient (CLI) | payer OTHER, SELFPAY ==
--- NOTE | ~2022-03-20 | XR_ITS ---
XR abdomen/kub 1V 03/20/2022 15:13 INDICATION: Renal stones TECHNIQUE: KUB COMPARISON: 03/21/2021 FINDINGS: Bowel gas pattern is normal. There is no evidence of free air, mass, organomegaly, ascites or obstruction. There is a faint calcification overlying the lower pole the right kidney, consistent with renal stone. There is moderate fecal material in the colon which obscures the kidneys. The bone s appear intact. IMPRESSION: 1: Faint right renal stone at the lower pole. Reviewed, dictated and finalized at location A. 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
== END 2022-03-20 14:55 | disposition home or self-care (01) ==
PROVIDERS: PCP Family Medicine; Visit Provider Urology
DX: N20.0 Calculus of kidney (principal)
CPT/HCPCS: 74018

== ENCOUNTER 2023-11-26 15:29 | Outpatient (CLI) | payer OTHER, SELFPAY ==
--- NOTE | ~2023-11-26 | XR_ITS ---
XR abdomen/kub 1V Ordering provider: Adam Forrester MD History: . CALCULUS OF KIDNEY . Comparison: None. FINDINGS: BOWEL: Nonobstructive bowel gas pattern. ORGANOMEGALY: None. SIGNIFICANT PATHOLOGIC CALCIFICATIONS: None. OTHER: No free air is seen under the diaphragm. IMPRESSION: NO ACUTE ABDOMINAL FINDINGS. Reviewed, dictated and finalized at location A.
== END 2023-11-26 15:30 | disposition home or self-care (01) ==
PROVIDERS: PCP Family Medicine; Visit Provider Urology
DX: N20.0 Calculus of kidney (principal)
CPT/HCPCS: 74018

== ENCOUNTER 2024-04-12 21:09 | Outpatient (CLI) | payer BC, SELFPAY ==
--- NOTE | 2024-05-01 14:34 | P.SLEEP_ITS ---
Sleep Study Date of Study: 04/12/24 Ordering Provider: Mindy Reynolds Deepali Interpreting Physician: Caroline Aguero MD Sleep Study Type: Split Polysomnogram Height: 1.8 m Weight: 104.326 kg Body Mass Index: 32.1 Neck Circumference (inches): 16 Carlton: 16 Reason for Sleep Study Hypersomnolence Sleep History Jonnathan Hobson is a 58-year-old man with known obstructive sleep apnea, used CPAP in the past, and had difficulty tolerating it. He switched to oral appliance from his dentist. He still uses occasionally. When he is without treatment, he has morning headaches. He rarely awakens from sleep feeling short of breath. He rarely awakens at night with heartburn, belching or coughing. He frequently snores and is loud enough that others complain. He frequently has difficulty sleeping when he has a cold. He occasionally wakes up at night gasping for breath. He frequently has breathing problems at night witnessed by others. He occasionally sweats excessively at night and notices his heart pounding or beating irregularly at night. He occasionally falls asleep during the day, occasionally falls asleep involuntarily, however never falls asleep while driving. He does not have loss of muscle tone with strong emotion. 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 He does not feel paralyzed on waking or falling asleep. He rarely has vivid dreamlike scenes upon awakening or falling asleep. He rarely feels afraid to go to sleep. He rarely has nightmares. He occasionally remembers his dreams. He frequently has racing thoughts. He occasionally feels sad or depressed. He frequently has anxiety. He occasionally has muscular tension. He occasionally notices parts of his body jerking. He frequently kicks at night. He occasionally has crawling and aching feelings in his legs. He rarely has any kind of leg pain at night. He rarely has morning jaw pain. He occasionally grinds his teeth at night. He frequently is bothered by pain during the day. He occasionally is awakened by pain during the night. He occasionally wakes up feeling stiff in the morning with sore achy muscles, occasionally awakens with pain in the neck and spine. He has fatigue, memory problems and concentration difficulties. Normal bedtime is 8:30 p.m. on weekdays, falling asleep within 15-20 minutes, wa tray between 2 and 3 times during the night to go to the bathroom. He is able to return to sleep within 15-20 minutes. His normal wake time is 5:00 a.m. on weekdays. On weekends, bedtime is 10:00 p.m., wake time is 7:00 a.m.. He estimates getting between 6 and 7 hours of sleep at night. He takes naps in the afternoon or evening. A short nap lasting 10-15 minutes sometimes may be refreshing. He does not always feel refreshed on waking. Habits: Tobacco: Never smoker Caffeine: 3-4 beverages per day Alcohol: none Recreational substances: none PMFSH Past Medical History Medical History Obstructive sleep apnea BPH (benign prostatic hyperplasia) Kidney stones ADHD Psoriasis Depression Anxiety Pre-diabetes SCHUYLER (obstructive sleep apnea) CPAP Asthma Hypertension Hyperlipidemia Surgical History Surgical History S/P cystoscopy with ureteral stent placement (01/2020) History of tonsillectomy History of hernia repair (~2016) Family History Family History Mother Acute myocardial infarction Father Acute myocardial infarction Grandparent Alzheimer's dementia Social History Social History Social History: He has been since 2007. 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 He is a lifelong nonsmoker. He drinks 2-3 alcoholic beverages a week. He denies illicit substance use. He does not have any children but has 2 small dogs at home. Smoking status: Never smoker Second hand tobacco smoke exposure: No Alcohol intake: current Drinks per week: 2 Substance use: never Substance use type: does not use Living arrangements: with family Spiritual care concerns: No Medications Home Medications ?Medication ?Instructions ?Recorded ?Confirmed ?Type albuterol sulfate 90 mcg/actuation 1 - 2 puff inhalation DIRECTED 01/26/20 12/31/20 History aerosol inhaler PRN Shortness Of Breath aspirin 81 mg tablet,delayed 81 mg PO HS 01/26/20 12/31/20 History release atorvastatin 10 mg tablet 10 mg PO HS 01/26/20 12/31/20 History fluticasone 250 mcg-salmeterol 50 1 inh inhalation BID 01/26/20 12/31/20 History mcg/dose blistr powdr for inhalation (Advair Diskus) lamotrigine 150 mg tablet 150 mg PO DAILY 01/26/20 12/31/20 History lisinopril 10 mg tablet 10 mg PO HS 01/26/20 12/31/20 History tamsulosin 0.4 mg capsule (Flomax) 0.4 mg PO HS 01/26/20 12/30/20 History venlafaxine 150 mg 150 mg PO HS 01/26/20 12/30/20 History capsule,extended release 24 hr amoxicillin 875 mg-potassium 1 tablet PO BID 12/29/20 12/31/20 History clavulanate 125 mg tablet atomoxetine 60 mg capsule 60 mg PO DAILY 12/29/20 12/31/20 History (Strattera) montelukast 10 mg tablet 10 mg PO HS 12/29/20 12/30/20 History (Singulair) cephalexin 500 mg capsule 500 mg PO Q8H #9 caps 12/31/20 Rx hydrocodone 5 mg-acetaminophen 325 1 - 2 tablet PO Q6H PRN pain #20 12/31/20 Rx mg tablet tabs Sleep Procedure A split night polysomnogram using the [employer] multi-channel system recorded the standard physiologic parameters including EEG, EOG, submentalis EMG, anterior tibialis EMG, EKG, body position, nasal and oral airflow using nasal pressure sensor and thermistor. Respiratory parameters of chest and abdominal movements were recorded with Respiratory Inductance Plethysmography belts. Oxygen saturation was recorded by pulse oximetry. Video monitoring was also performed. Sleep stages, periodic limb movements, and EEG arousals were scored in 30 second epochs according to the criteria of the AASM Scoring Manual. The Apnea-Hypopnea Index was calculated using CMS guidelines for definition of hypopnea while scoring respiratory events. The patient did not use a sleep aid at the beginning of this study. He had 1 trip to the bathroom during the night. After the baseline portion the patient met criteria for a titration with an AHI of 8.1 using 4% criteria and an AHI of 19.7 using a 3% desaturation criteria. He desaturated to 89%. He has a comorbidity including hypertension and mood di sorder, on medications for each of these, and with this he is allowed to be treated with mild obstructive sleep apnea on the baseline portion. He used a medium ResMed AirFit N at 30 I with heated humidity, initial pressure was 5 cm of water pressure, titrated up to a maximum of 7 cm CPAP. At CPAP 7 cm, the patient spent 94.5 minutes in bed, 19.5 minute awake, 42 minutes in non-REM and 33 minutes in REM. The sleep efficiency was 79.4%. The residual apnea-hypopnea index was 2.4 and the minimum saturation was 90%. REM occurred in the supine position. This is the optimal pressure. Sleep Architecture Baseline During the diagnostic portion of the study, the total recording time was 161.8 minutes. The total sleep time was 140.0 minutes. Sleep latency was 11.8 minutes. REM latency was 131.0 minutes. Sleep Efficiency was 86.5%. The patient had 2 awakenings for an awakening index of 0.9. Wake after sleep onset time was 10.0 minutes. The patient spent 12.5 minutes, 8.9% of total sleep time in Stage N1. The patient spent 85.5 minutes, 61.1% in Stage N2. The patient spent 32.5 minutes, 23.2% in Stage N3. The patient spent 9.5 minutes, 6.8% in Stage REM sleep. Titration At 12:59:30 AM the patient was placed on PAP treatment and was titrated at pressures ranging from CPAP 5 cm to 7 cm. During the treatment portion of the study, the total recording time was 261.4 minutes. The total sleep time was 215.0 minutes. Sleep latency was 7.5 minutes. REM latency was 80.0 minutes. Sleep Efficiency was 82.2%. Wake after Sleep Onset time was 38.5 minutes. The patient spent 18.5 minutes, 8.6% of total sleep time in Stage N1. The patient spent 140.0 minutes, 65.1% in Stage N2. The patient spent no time in Stage N3. The patient spent 56.5 minutes, 26.3% in Stage REM. Respiratory Analysis Baseline During the diagnostic portion of the study, the patient had 17 hypopneas, 2 obstructive apneas, no mixed or central apneas for an overall Apnea Hypopnea Index of 8.1 events per hour using 4% criteria, and the apnea hypopnea index was 19.7 using 3% criteria. The REM Apnea Hypopnea Index was 0. The NREM Apnea Hypopnea Index was 8.7. The patient had a Central Apnea Hypopnea Index of 0. There were no Respiratory Effort Related Arousals. The Respiratory Disturbance Index is 14.1 events per hour. There was no evidence of Anthony-Harris Respirations. Titration During the treatment portion of the study, the patient had no hypopneas, obstructive apneas, mixed apneas, or central apneas for an overall Apnea Hypopnea Index of 0 events per hour. The REM Apnea Hypopnea Index was 0. The NREM Apnea Hypopnea Index was 0. The patient had a Central Apnea Hypopnea Index of 0. There were no Respiratory Effort Related Arousals. The Respiratory Disturbance Index is 0.8 events per hour. There was no evidence of Anthony-Harris Respirations. Arousals Baseline During the diagnostic portion of the study, there were a total of 55 arousals for an arousal index of 23.6. There were 27 respiratory arousals for an index of 11.6. There were no periodic limb movement arousals. There were 6 isolated limb movement arousals for an index of 2.6. There were 14 spontaneous arousals for an index of 6.0. Titration During the treatment portion of the study, there were a total of 56 arousals for an index of 15.6. There were 3 respiratory arousals for an index of 0.8. There were 7 periodic limb movement arousals for an index of 2.0. There were 31 isolated limb movement arousals for an index of 8.7. There were 15 spontaneous arousals for an index of 4.2. Periodic Limb Movements Baseline During the diagnostic portion of the study, the patient had 18 isolated limb movements with an index of 7.7. The patient had 5 periodic limb movements with an index of 2.1. The patient had a total of 23 limb movements with a total limb movement index of 9.9. Titration During the treatment portion of the study, the patient had 53 isolated limb movements with an index of 14.8. The patient had 21 periodic limb movements with an index of 5.9. The patient had a total of 74 limb movements with a total limb movement index of 20.7. Oximetry Data Baseline During the diagnostic portion of the study, the patient had an average oxygen saturation of 93% in wake with a minimum oxygen saturation of 90% and a maximum oxygen saturation of 98%. The patient had an average oxygen saturation of 92.4% in sleep with a minimum oxygen saturation of 890% and a maximum oxygen saturation of 980%. The patient had 36 oxygen desaturations resulting in an Oxygen Desaturation Index of 15.4. The patient spent no time with an oxygen saturation less than 88%. Titration During the treatment portion of the study, the patient had an average oxygen saturation of 94.1% in wake with a minimum oxygen saturation of 91% and a maximum oxygen saturation of 97%. The patient had an average oxygen saturation of 93.8% in sleep with a minimum oxygen saturation of 89% and a maximum oxygen saturation of 98%. The patient had 5 oxygen desaturations resulting in an Oxygen Desaturation Index of 1.4. The patient spent no time with an oxygen saturation less than 88%. Snoring Profile Snoring was moderate to loud on the baseline, and this was eliminated with CPAP therapy. Cardiac Profile Baseline During the diagnostic portion of the study, the EKG showed normal sinus rhythm. The average pulse rate was 77.9 bpm. The minimum pulse rate was 65 bpm. The maximum pulse rate was 97 bpm. No arrhythmias noted. Titration During the treatment portion of the study, the EKG showed normal sinus rhythm. The average pulse rate was 74.6 bpm. The minimum pulse rate was 62 bpm. The maximum pulse rate was 99 bpm. No arrhythmias noted. EEG Profile EEG was unremarkable, no evidence of seizures. Assessment and Plan Assessment and Plan (1) Obstructive sleep apnea: Code(s): G47.33 - Obstructive sleep apnea (adult) (pediatric) Status: Acute Assessment and Plan: This split night sleep study on 04/12/2024 shows mild obstructive sleep apnea syndrome using 4% criteria, apnea-hypopnea index was 8 0.1, lowest saturation 89% successfully treated using CPAP 7 cm of water pressure and a medium ResMed AirFit N30 I nasal mask with heated humidity. Supine REM occurred at CPAP 7 cm with a residual apnea-hypopnea index of 0 at the optimal pressure. The patient should be prescribed this ResMed equipment as well as tubing, filters and reservoir. This should be used with all episodes of sleep. Compliance should be reviewed within 31-90 days of starting therapy for usage greater than 4 hours per night greater than 70% of the nights. The patient should be asked about symptoms such as excessive daytime sleepiness, quality of sleep, decreased nocturia, increased mental functioning such as memory, mood, and concentration. BMI is 32. Weight management is advised. Clinical data suggests that weight loss of 10% can reduce the severity of respiratory events and snoring and improve AHI by as much as 25%. The patient is responded on the sleep questionnaire that he frequently kicks at night and occasionally had uncomfortable feelings in his legs. He had modest leg movements on the baseline portion, a total limb movement index of 9.9. During treatment this increased to 20.7 however these did not cause significant arousals. He should be asked about uncomfortable feelings in his legs before sleep and how he is feeling after he begins using PAP. In general, PAP therapy improves limb movements during sleep. Clinical or correlation is recommended. Data The data obtained during this sleep study is adequate for interpretation. Certification This sleep study has been reviewed by a board certified sleep medicine physician.
[2024-05-01 20:47] VITALS: BMI 32.1
== END 2024-04-13 05:48 | disposition home or self-care (01) ==
LOC: CHSCSM 21:14
PROVIDERS: PCP Family Medicine
DX: G47.33 Obstructive sleep apnea (adult) (pediatric) (principal); Z68.32 Body mass index [BMI] 32.0-32.9, adult
CPT/HCPCS: 95811